=== PATIENT | female | born 1955 | race Caucasian/White ===

== ENCOUNTER 2018-04-04 09:35 | Day surgery (SDC) | payer MEDICAID, SELFPAY ==
[2018-04-03 08:43] VITALS: BMI 26.2
--- NOTE | 2018-04-04 11:51 | PCM.PN.BLA ---
Progress Note CONSCIOUS SEDATION REPORT DATE OF SERVICE: April 04, 2018 BRIEF HISTORY OF PRESENT ILLNESS: The patient is a 63-year-old female who presented to [facility] for an elective outpatient cardioversion due to underlying atrial flutter/fibrillation. The patient is currently followed by Dr. Condon. Her last surface echocardiogram revealed an ejection fraction of approximately 63%. The patient is currently anticoagulated on Xarelto. She has never previously undergone a cardioversion in the past. She denies any previous anesthetic complications. She does have a reported history of COPD along with obstructive sleep apnea, for which she currently utilizes nocturnal CPAP therapy. PHYSICAL EXAMINATION: VITAL SIGNS: Reviewed and were acceptable. GENERAL: The patient is an obese female, in no apparent distress, speaking in full sentences. HEENT: Normocephalic, atraumatic. Mucous membranes are moist and pink. Good mouth opening noted. Trachea is midline. MPIII CHEST: S1, S2 irregularly irregular. No murmurs, rubs or gallops were noted. LUNGS: Clear to auscultation bilaterally without appreciable wheezes, rales or rhonchi. ABDOMEN: Soft, nontender, nondistended. Positive bowel sounds. Obese. EXTREMITIES: There is no clubbing, cyanosis or edema. ASA Class: II DESCRIPTION OF PROCEDURE: After confirmation of informed consent, the patient's anesthesia plan was reviewed in detail. Propofol was chosen. Risks and benefits were reviewed and the patient agreed to proceed. At 1125, the patient was given her first bolus of propofol. In total, the patient required 80 mg of propofol throughout the procedure to maintain an appropriate level of sedation. The patient received a total of [address] Castillo at the bedside, one at 200 J, one at 300 J and one at 360 J. Unfortunately, none of the aforementioned was successful in achieving normal sinus rhythm. The patient was subsequently monitored until 1137, at which time, she reached her baseline mental status and function. The patient tolerated the procedure well. COMPLICATIONS: None ESTIMATED BLOOD LOSS: None RECOMMENDATIONS: Okay to recover in usual fashion. Code Visit 9xxxx: Other Procedure See Report - [id number]
--- NOTE | 2018-04-04 11:59 | PN_ITS ---
Progress Note DC cardioversion report: Patient is a 63-year-old moderately obese female with a history of hypertension, hypercholesterolemia, coronary disease, patient of Dr. Kenney Condon's, who was referred to cardiovascular lab for elective DC cardioversion. The patient has been on anticoagulation therapy for the requisite amount, and has been tolerating her medicines well. Her EF is 65%. The risks/benefits of the procedure were thoroughly explained to the patient and informed consent was obtained. The defibrillator pads were placed in AP position. EKG documented atrial flutter with controlled ventricular response. With the assistance of Dr. George Jerome the patient was given propofol for sedation receiving 40 mg initially, followed by additional sedation for each additional cardioversion. Once the patient was adequately sedated, she underwent elective synchronized DC cardioversion at 200, then 300, and finally 360 J without success of ca rdioversion. Patient remained in atrial flutter with controlled ventricular response and never cardioverted. The patient spontaneously awoke, moves all 4 extremities and tolerated the procedure well. Conclusions: Unsuccessful beta-stephen assisted DC cardioversion at 200, 300, and 360 J with synchronized biphasic shocks. Patient awoke without any complications and is doing well neurologically. Have discussed the outcome with Dr. Kenney Condon who will discuss with the patient options regarding antiarrhythmic therapy versus medical management. Patient tolerated procedure well. No complications. Follow-up with Dr. Condon going forward.
== END 2018-04-04 12:53 | disposition home or self-care (01) ==
LOC: CLSP 09:37
PROVIDERS: Family Provider Internal Medicine; PCP Internal Medicine; Referring Provider Internal Medicine Cardiovascular Disease; Visit Provider Internal Medicine Cardiovascular Disease
DX: I48.0 Paroxysmal atrial fibrillation (principal); I25.10 Atherosclerotic heart disease of native coronary artery without angina pectoris; E78.00 Pure hypercholesterolemia, unspecified; I10 Essential (primary) hypertension; E66.9 Obesity, unspecified; Z68.32 Body mass index [BMI] 32.0-32.9, adult; I27.20 Pulmonary hypertension, unspecified; I49.5 Sick sinus syndrome; G47.33 Obstructive sleep apnea (adult) (pediatric); J44.9 Chronic obstructive pulmonary disease, unspecified; H40.9 Unspecified glaucoma; I25.2 Old myocardial infarction; M85.80 Other specified disorders of bone density and structure, unspecified site; Z95.5 Presence of coronary angioplasty implant and graft; Z95.0 Presence of cardiac pacemaker; Z87.19 Personal history of other diseases of the digestive system; Z79.01 Long term (current) use of anticoagulants; Z79.899 Other long term (current) drug therapy; Z87.891 Personal history of nicotine dependence
CPT/HCPCS: 92960; 93005; J7040

== ENCOUNTER 2018-08-08 11:36 | Emergency (ER) | payer MEDICAID, SELFPAY ==
[2018-04-03 08:43] VITALS: BMI 26.2
[2018-08-08 11:37] VITALS: BP 93/49; PULSE 76; RESP 14; TEMP 37.2; O2SAT 97; BMI 37.0
--- NOTE | 2018-08-08 12:15 | RAD_ITS ---
STUDY: X-RAY - LEFT FOOT CLINICAL: Female, 63 years old. Foot injury, foot pain TECHNIQUE: 3 view(s) of the foot. COMPARISON: None. FINDINGS: Normal talus, calcaneus, and tarsal bones. Normal visualized subtalar, talonavicular, calcaneocuboid, tarsal and tarsometatarsal articulations. Healed bunionectomy osteotomy and fixation of the first metatarsal bone. Normal metatarsophalangeal joint of the great toe. Normal tibial and fibular sesamoid bones. Normal interphalangeal joint of the great toe. Normal phalanges of the great toe. Normal second through fifth metatarsophalangeal joints. Normal interphalangeal joints and phalanges of the lesser toes. The soft tissue structures are unremarkable. RAD/Foot min 3 Views IMPRESSION: No acute fracture or dislocation. Electronically Signed: Kam Jackson MD at 12:35 EDT Tel , Service support ,
--- NOTE | 2018-08-08 12:22 | ED.VISSUMM ---
- ER Visit Summary Date of Service: 08/08/18 Chief Complaint: Left foot injury History of Present Illness: The patient is a 63 F of CAD, IA, A. fib with cardiac stents and on Xarelto. Patient states she stood up on a step stool and when she stepped down from it she injured her left foot and went down. Denies any other injuries. She did not hit her head. No prior left foot surgeries she has had fractured toes before. Physical Examination: Vital signs are stable afebrile. HEENT exam unremarkable. No signs of trauma. Neck nontender. Lungs clear to auscultation bilaterally. Heart regular rhythm no murmur. Chest wall nontender. Abdomen soft nontender. Pelvic girdle intact. Extremities moves all 4. Neurovascular intact. Left foot the proximal aspect is tender to palpation. Minimal swelling. No gross bony deformity. Ankle is nontender as is the lower leg. Foot is neurovascular intact with normal dorsi plantarflexion. Normal cap refill and touch sensation to her toes. Normal DP pulse. Neurologically she is awake and alert with no focal motor deficits. Test Results: Left foot x-ray 3 views shows shows no acute abnormality. No fracture. No dislocation. There is osteopenia. I did go over the x-rays with the patient and explained her sometimes a nondisplaced fracture would not show up on the first film and if this continues to be a problem in 1 week she needs to have it reevaluated and possibly re-x-ray. Emergency Department Course and Treatment: Ice and elevate her left foot. Postop shoe. Tylenol for pain. Normally I would place her on anti-inflammatories but she is already on Xarelto. Treatment Plan: Ice and elevate. Tylenol for pain. Follow-up if not improving may need further evaluation or repeat x-ray. Disposition: Discharge Impression: Acute left foot sprain This note was generated with [employer] dictation software. It may contain incorrect words, spelling, and punctuation that were not noted in review of the chart prior to signing ED Disposition - Plan for ED Patient: Referrals: Zachariah Stanford MD [Primary Care Provider] -
--- NOTE | 2018-08-08 12:33 | ED.DEP ---
ED Disposition - Plan for ED Patient: Disposition: Home or Assisted Living Instructions: Sprain Foot Referrals: Zachariah Stanford MD [STAFF PHYSICIAN] - 1 Week if not improving Additional Instructions: Ice and elevate your left foot. Tylenol for pain. Postop shoe for walking. Follow-up with your doctor if not improving in 1 week. May need further evaluation or additional x-rays.
== END 2018-08-08 12:57 | disposition home or self-care (01) ==
PROVIDERS: Emergency Provider Emergency Medicine; Family Provider Family Medicine; PCP Family Medicine
DX: S93.602A Unspecified sprain of left foot, initial encounter (principal); M85.872 Other specified disorders of bone density and structure, left ankle and foot; X58.XXXA Exposure to other specified factors, initial encounter; Y93.9 Activity, unspecified; Y92.9 Unspecified place or not applicable; I25.10 Atherosclerotic heart disease of native coronary artery without angina pectoris; I25.2 Old myocardial infarction; J44.9 Chronic obstructive pulmonary disease, unspecified; I48.91 Unspecified atrial fibrillation; Z95.5 Presence of coronary angioplasty implant and graft; Z79.01 Long term (current) use of anticoagulants; Z79.899 Other long term (current) drug therapy
CPT/HCPCS: 73630; 99283

== ENCOUNTER → 2022-04-11 | Outpatient (CLI) | payer MEDICARE, SELFPAY ==
[2022-04-11 16:20] LABS: Hematocrit 41.9 % (37-47); Mean Corpuscular Volume 93.3 fL (81-99); Mean Platelet Vol. 9.9 fl (6.2-12.0); Platelet Count 282 K/mm3 (150-450); RBC Distribution Width CV 13.2 % (11.6-14.6); RBC Distribution Width SD 45.1 fl (35.1-43.9); Red Blood Count 4.49 M/mm3 (4.2-5.4); White Blood Count 8.6 K/mm3 (4.4-11.0)
[2022-04-11 16:40] LABS: Anion Gap 8 (5-15); BUN 9 mg/dL (7-18); BUN/Creat Ratio 9.7 RATIO (10-20); Calcium,Total 9.8 mg/dL (8.5-10.1); Chloride 105 mmol/L (98-107); Creatinine, Serum 0.93 mg/dL (0.55-1.02); EST Glomerular Filtration Rate 64 mL/min (>60); Est Glom Filt Rate - Afr Amer 77 mL/min (>60); Glucose 80 mg/dL (74-106); Potassium 4.2 mmol/L (3.5-5.1); Sodium Level 141 mmol/L (136-145)
== END | disposition home or self-care (01) ==
LOC: LAB 15:40
PROVIDERS: PCP Family Medicine; Referring Provider Otolaryngology; Visit Provider Otolaryngology
DX: J34.2 Deviated nasal septum (principal)
CPT/HCPCS: 36415; 80048; 85027

== ENCOUNTER → 2023-07-12 | Outpatient (CLI) | payer MEDICARE, MEDICAID, SELFPAY ==
--- NOTE | 2023-07-12 10:27 | MRI_ITS ---
EXAM: MR CERVICAL SPINE WITHOUT INTRAVENOUS CONTRAST CLINICAL INDICATION: STENOSIS,RADICULOPATHY,SPONDYLOSIS TECHNIQUE: Multiplanar and multisequence MR images of the cervical spine without intravenous contrast were performed. COMPARISON: No relevant prior studies available. FINDINGS: VERTEBRAE: Multilevel facet arthropathy. The left C2-3 facet joint is fused. Normal alignment. Normal craniocervical junction and cervicothoracic junction. No spondylolisthesis. SPINAL CORD: Unremarkable in signal and morphology. SOFT TISSUES: Normal. No prevertebral soft tissue swelling. LYMPH NODES: Normal. There is no cervical adenopathy. DISCS/SPINAL CANAL/NEURAL FORAMINA: C2-C3: Normal. Normal disc height and morphology. Normal spinal canal. Normal neuroforamina. C3-C4: Normal. Normal disc height and morphology. Normal spinal canal. Normal neuroforamina. C4-C5: Mild disc space narrowing. No disc protrusion. Normal caliber spinal canal. Moderate narrowing of the neural foramina related to uncinate joint hypertrophy. C5-C6: Mild disc space narrowing. Right central disc protrusion causes mild narrowing of the spinal canal and right lateral recess. Severe right and moderate left neural foraminal narrowing related to uncinate joint hypertrophy. C6-C7: Mild to moderate disc space narrowing. Mild disc bulging without spinal stenosis. Severe right and moderate left neural foraminal narrowing related to uncinate joint hypertrophy. C7-T1: Normal. Normal disc height and morphology. Normal spinal canal. Normal neuroforamina. MRI/Spine Cervical (Routine) IMPRESSION: 1. Spondylosis as described without significant spinal stenosis. 2. Multilevel neural foraminal stenoses as described. Electronically Signed: Ramon Gary MD at 16:05 EDT ,
[2023-07-12 10:40] VITALS: BP 95/60; PULSE 68; RESP 16; O2SAT 96
[2023-07-12 10:50] VITALS: BP 118/68; PULSE 84; RESP 16; O2SAT 97
[2023-07-12 11:00] VITALS: BP 114/70; PULSE 84; RESP 16; O2SAT 96
[2023-07-12 11:10] VITALS: BP 116/88; PULSE 85; RESP 16; O2SAT 96
[2023-07-12 11:20] VITALS: BP 118/70; PULSE 84; RESP 16; O2SAT 95
[2023-07-12 11:25] VITALS: BP 113/59; PULSE 61; RESP 16; O2SAT 95
== END | disposition home or self-care (01) ==
LOC: MRI 10:22
PROVIDERS: PCP Family Medicine; Referring Provider Orthopaedic Surgery; Visit Provider Orthopaedic Surgery
DX: M48.02 Spinal stenosis, cervical region (principal); M47.892 Other spondylosis, cervical region; M54.12 Radiculopathy, cervical region
CPT/HCPCS: 72141